=== PATIENT | female | born 1970 | race Caucasian/White ===

== ENCOUNTER → 2025-03-18 | Outpatient (CLI) | payer OTHER ==
[~2025-03-18] MED LIST: BIRTH CONTROL1 EAC1 PO; CLARITIN10 MG PO; MOTRIN800 MG PO; ROBAXIN750 MG PO; SINGULAIR10 MG PO
[2025-03-18 13:10] LABS: BASO # 0.0 10*3/uL (0.0-0.1); BASO % 0.7 % (0.0-1.0); EOS # 0.2 10*3/uL (0.0-0.4); EOS % 3.4 % (1.0-4.0); MEAN CELL VOLUME 91.0 fl (81.0-99.0); MEAN CORPUSCULAR HGB 29.2 pg (27.0-31.0); MEAN PLATELET VOLUME 10.4 fl (9.6-12.3); MONO # 0.6 10*3/uL (0.1-1.0); MONO % 10.7 % (3.0-9.0); NEUT # 3.4 10*3/uL (2.3-7.9); NEUT % 57.7 % (47.0-73.0); NUCLEATED RED BLOOD CELL 0.0 % (0.0-0.0); NUCLEATED RED BLOOD CELL 0.0 10*3/uL (0.0-0.0); PLATELET COUNT AUTOMATED 297 10*3/uL (130-400); RED CELL DISTRI WIDTH 11.9 % (0-14.5)
[2025-03-18 13:26] LABS: BUN 12 mg/dl (9-23); LDL CHOLESTEROL 95 mg/dL (9-159); SGPT/ALT 20 U/L (5-49)
[2025-03-18 13:56] LABS: FREE T4 1.44 ng/dl (0.89-1.76)
== END | disposition home or self-care (01) ==
LOC: LAB 12:33
PROVIDERS: ATTEND Nurse Practitioner Family
DX: E03.9 Hypothyroidism, unspecified (principal); E78.2 Mixed hyperlipidemia; Z76.89 Persons encountering health services in other specified circumstances